=== PATIENT | female | born 1985 | race Caucasian/White ===

== ENCOUNTER 2016-09-19 18:34 | Emergency (ER) | payer BC, OTHER ==
[~2016-09-19] VITALS: Ht 157.5 cm; Wt 93.5 kg
[~2016-09-19 18:34] MED LIST: HYDR-2932 PO; IBUP-1542 PO; [UNRECOGNIZED DRUG - OTHER]
[2016-09-19 18:41] VITALS: Ht 157.5 cm; Wt 93.5 kg
--- NOTE | 2016-09-19 20:06 | ERD ---
ER Documentation Chief Complaint Date/Time DATE: 09/19/16 TIME: 20:01 Chief Complaint sp ground level fall yesterday, lower leg pain HPI Patient is a 31-year-old female who presents to the emergency department with concerns of recurrent falls. Patient states over the last year she has had numerous falls. Patient reports increased recurrence in falls over the last 2 months. Patient estimates she is fallen 3-4 times.. Patient states that she typically will be walking and she will fall to her bilateral knees. Patient denies any uneven ground or objects in the way. Patient also complaining of "increased head pressure" Patient states that this head pressure has been ongoing for the last few months. Patient denies any blurry vision, eye pain, nausea, vomiting, dizziness or loss consciousness. Patient does report some tingling sensation in her bilateral arms. Patient denies any leg pain or leg injuries at this time. Patient denies any chest pain, shortness of breath, diaphoresis. ROS All systems reviewed and are negative except as per history of present illness. Medications Home Meds Reported Medications [Jignesh Rashid Herbal] No Conflict Check, BID 08/28/12 Hydrocodone Bit/Acetaminophen (Hydrocodone-Apap 5-500 Mg Tab) 1 Tab Tablet, 1 TAB PO Q6NARC Y 08/28/12 Ibuprofen* (Ibuprofen*) 600 Mg Tablet, 600 MG PO Q6 Y 08/28/12 Allergies Allergies: Coded Allergies: No Known Drug Allergies (Verified Allergy, Unknown, 05/02/14) PMhx/Soc Medical and Surgical Hx: pt denies Medical Hx History of Surgery: Yes (C-SEC X2, TITI 2012) Anesthesia Reaction: No Hx Neurological Disorder: No Hx Respiratory Disorders: No Hx Cardiac Disorders: No Hx Psychiatric Problems: No Hx Miscellaneous Medical Probl: No Hx Alcohol Use: Yes (OCC.) Hx Substance Use: No Hx Tobacco Use: No Smoking Status: Never smoker Physical Exam Vitals Vital Signs Date Time Temp Pulse Resp B/P Pulse Ox O2 Delivery O2 Flow Rate FiO2 09/19/16 18:41 98.3 62 20 154/83 100 Physical Exam GENERAL: Well-developed, well-nourished female. Appears in no acute distress. Speaking in full sentences HEAD: Normocephalic, atraumatic. No deformities or ecchymosis. EYE: Pupils equal, round, and reactive to light. EOMs intact. No conjunctival erythema. No eye discharge. No proptosis. No periorbital swelling. ENT: External ear without any masses or tenderness. Auditory canals clear bilaterally. TM visualized bilaterally, non-erythematous, non-bulging. Nasal mucosa pink with no discharge. Oropharynx is pink without any tonsillar erythema or exudates. No uvula deviation. No kissing tonsils. NECK: Supple. No meningismus. Normal ROM of the neck. No cervical spine mid line tenderness. LUNG: Clear to auscultation bilaterally. No rhonchi, wheezing, rales or coarse breath sounds. HEART: Regular rate and rhythm. No murmurs, rubs or gallops. ABDOMEN: Soft, nontender, and nondistended. Positive bowel sounds in all four quadrants. No rebound tenderness, no guarding. (-) McBurney's point tenderness. No CVA tenderness. : deferred BACK: No midline tenderness. EXTREMITES: Equal pulses bilaterally. No peripheral clubbing, cyanosis or edema. No unilateral leg swelling. NEUROLOGIC: Alert and oriented x3, cooperative. Mood and affect appropriate to situation. Cranial nerves II through XII are grossly intact. Normal speech. Motor exam: 5/5 strength in upper and lower extremities. Sensory exam: Sensation intact to light touch on all four extremities. Cerebellar function exam: No dysmetria on [id number]-hp-[id number] test. Steady gait. No pronator drift. Negative Kernig sign. Negative Brudzinski sign. SKIN: Normal color. Warm and dry. No rashes or lesions. Results 24 hrs Laboratory Tests Test 09/19/16 20:18 Bedside Urine pH (LAB) 6.0 Bedside Urine Protein (LAB) Negative Bedside Urine Glucose (UA) Negative Bedside Urine Ketones (LAB) Negative Bedside Urine Blood 2+ Bedside Urine Nitrite (LAB) Negative Bedside Urine Leukocyte Esterase (L Negative Procedures/MDM ED COURSE: The patient was stable throughout ED course. I kept the patient and/or family informed of laboratory and diagnostic imaging results throughout the ED course. DIAGNOSTIC IMAGING: Read by radiologist. DIAGNOSTIC IMAGING REPORT Patient: EWELINA BECKER : 1985 Age: 31 Sex: F MR #: [id number] DOS: 09/19/161945 Ordering MD: FRANCISCO LOGAN PA-C Location: [facility] Room/Bed: PROCEDURE: CT Head without. CLINICAL INDICATION: Headaches. TECHNIQUE: The study was performed utilizing a multi-slice, multidetector CT scanner. Direct spiral 1 mm axial sections were obtained through the head without the use of intravenous contrast material. 1 or more of the following dose reduction techniques were utilized: Automated exposure control, adjustment of the mA and/or kV according to patient's size, iterative reconstruction technique. Coronal and sagittal reformations were obtained. The images were reviewed on a PACS workstation. RADIATION DOSE: CTDIvol: 45.0 mGy DLP: 720.2 mGy-cm COMPARISON: No prior studies are available for comparison. FINDINGS: There is no intracranial hemorrhage, extra-axial fluid collection, mass lesion, midline shift or hydrocephalus. The ventricles, sulci and cisterns are within normal limits. The white matter is unremarkable. The carr-white matter differentiation is preserved. The basal cisterns are patent. The midline structures are intact. The orbits, calvarium and extracranial soft tissues are normal in appearance. The visualized paranasal sinuses, mastoid air cells and middle ear cavities are normally aerated. IMPRESSION: 1. No acute intracranial abnormality. No intracranial hemorrhage, extra-axial fluid collection, mass lesion or hydrocephalous. RPTAT: HGAS .Shant Zamora MD, Date Time Electronically viewed and signed by .Shant Zamora MD, on 09/19/2016 20: 09 .S/ CC: FRANCISCO LOGAN PA-C MEDICAL DECISION MAKING: This is a 31-year-old female who presents with "increased head pressure" and recurrent falls over the last year. Vital signs were reviewed. Patient was afebrile. Patient is not hypoxic. Patient was speaking in full sentences. Patient was able to ambulate without any difficulty. Full neurological exam was normal. CT imaging of the brain showed No acute intracranial abnormality. No intracranial hemorrhage, extra-axial fluid collection, mass lesion or hydrocephalous. Given these findings, the patient's presentation is most consistent with headaches. I have a much lower clinical concern for intracranial hemorrhage, meningitis, encephalitis, CO poisoning, temporal arteritis, benign intracranial hypertension, intracranial mass, glaucoma, sinusitis, cluster headaches. Unable to rule out any spinal lesions or multiple sclerosis at this time. Patient will need to follow-up with a neurologist as soon as possible for further management of her symptoms. Patient was advised that she will need to obtain an MRI of the brain and spine on an outpatient basis. Patient understands and agrees with this plan. Low suspicion for any extremity fractures or dislocations. DISCHARGE: At this time, patient is stable for discharge and outpatient management. Patient provided with a copy of all imaging studies obtained today. I have encouraged the patient to hydrate well. I have instructed the patient to follow- up with his/her primary care physician in 1-2 days. If symptoms persist, patient may need to see a specialist for further examinations and testing. I have instructed the patient to promptly return to the ER at any time for any new or worsening symptoms including increased increased pain, fever, nausea, vomiting, numbness, neck stiffness, visual changes, weakness or LOC. The patient and/or family expressed understanding of and agreement with this plan. All questions were answered. Home care instructions were provided. Departure Diagnosis: Primary Impression: Headache Headache type: unspecified Headache chronicity pattern: unspecified pattern Intractability: not intractable Qualified Code: R51 - Nonintractable headache, unspecified chronicity pattern, unspecified headache type Additional Impression: Falls Encounter type: initial encounter Qualified Code: W19.XXXA - Falls, initial encounter Condition: Stable Patient Instructions: Self-Care for Headaches Additional Instructions: Call your primary care doctor TOMORROW for an appointment during the next 1-2 days.See the doctor sooner or return here if your condition worsens before your appointment time. Patient will need to follow-up with a neurologist for further management of her symptoms. Patient will need MRI study obtained on an outpatient basis to rule out any spinal cord lesions. Unable to rule out spinal cord lesions or multiple sclerosis at this time. FRANCISCO LOGAN PA-C Sep 19, 2016 20:06 FRANCISCO LOGAN PA-C Sep 19, 2016 20:06
--- NOTE | 2016-09-19 20:09 | RADRPT ---
PROCEDURE: CT Head without. CLINICAL INDICATION: Headaches. TECHNIQUE: The study was performed utilizing a multi-slice, multidetector CT scanner. Direct spira l 1 mm axial sections were obtained through the head without the use of intravenous contrast materia l. 1 or more of the following dose reduction techniques were utilized: Automated exposure control, adjustment of the mA and/or kV according to patient's size, iterative reconstruction technique. Co jose and sagittal reformations were obtained. The images were reviewed on a PACS workstation. RADIATION DOSE: CTDIvol: 45.0 mGyDLP: 720.2 mGy-cm COMPARISON: No prior studies are available for comparison. FINDINGS: There is no intracranial hemorrhage, extra-axial fluid collection, mass lesion, midline shift or hyd rocephalus. The ventricles, sulci and cisterns are within normal limits. The white matter is unrem arkable. The carr-white matter differentiation is preserved. The basal cisterns are patent. The m idline structures are intact. The orbits, calvarium and extracranial soft tissues are normal in steve earance. The visualized paranasal sinuses, mastoid air cells and middle ear cavities are normally ae rated. IMPRESSION: 1. No acute intracranial abnormality. No intracranial hemorrhage, extra-axial fluid collection, ma ss lesion or hydrocephalous. RPTAT: HGAS .Shant Zamora MD, MD Date Time Electronically viewed and signed by .Shant Zamora MD, MD on 09/19/2016 20:09 .S/
[2016-09-19 20:18] LABS: URINE BLOOD (Dip) POC 2+ (NEGATIVE)
== END 2016-09-19 21:34 | disposition left against medical advice (07) ==
LOC: FTE 18:34
DX: R51 Headache (principal); Z04.3 Encounter for examination and observation following other accident
CPT/HCPCS: 70450; 81003